=== PATIENT | female | born 1970 | race Caucasian/White ===

== ENCOUNTER 2016-09-03 13:40 | Emergency (ER) | payer MEDICARE, MEDICAID | END 2016-09-03 14:35 | disposition left against medical advice (07) | LOC: ED 14:30 | DX: R11.0 Nausea (principal); Z53.21 Procedure and treatment not carried out due to patient leaving prior to being seen by health care provider ==

== ENCOUNTER 2018-10-18 19:40 | Emergency (ER) | payer MEDICARE, MEDICAID ==
[~2018-10-18] VITALS: Ht 162.6 cm; Wt 65.0 kg
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
[2018-10-18 20:34] LABS: ALANINE AMINOTRANSFERASE 18 U/L (12-78); ALBUMIN 3.6 g/dL (3.4-5.0); ANION GAP 10 mmol/L (5-15); CALCIUM 8.8 mg/dL (8.5-10.1); CHLORIDE 110 mmol/L (98-107); CREATININE 0.91 mg/dL (0.55-1.02)
[2018-10-18 20:36] LABS: ALKALINE PHOSPHATASE 128 U/L (45-117); BILIRUBIN,TOTAL 0.3 mg/dL (0.2-1.0)
--- NOTE | 2018-10-18 21:44 | NUR ---
PT IS ALL MEDICALLY CLEARED PT WILL BE DC'D TO DETENTION
--- NOTE | 2018-10-18 21:59 | NUR ---
GIVEN DC INSTRUCTION WITH TAXI KRIS PT COULD TAKE PT'S DOG AT [facility]Y [facility]AY
[2018-10-18 22:00] VITALS: BP 125/78
[2018-10-18] MEDS ORDERED: OMNIPAQUE 350 MG/ML, 100ML BOTTLE ONE (23:46)
== END 2018-10-18 22:03 | disposition home or self-care (01) ==
LOC: ED 20:53
DX: M54.2 Cervicalgia (principal); I10 Essential (primary) hypertension; E11.9 Type 2 diabetes mellitus without complications; F32.9 Major depressive disorder, single episode, unspecified; F41.9 Anxiety disorder, unspecified; F17.210 Nicotine dependence, cigarettes, uncomplicated; Y04.0XXA Assault by unarmed brawl or fight, initial encounter; Y99.8 Other external cause status; Y93.89 Activity, other specified; Y92.89 Other specified places as the place of occurrence of the external cause
CPT/HCPCS: 36415; 70498; 80053; 99284; Q9967